=== PATIENT | female | born 1965 | race Caucasian/White ===

== ENCOUNTER 2018-06-15 06:34 | Day surgery (SDC) | payer SELFPAY ==
[2018-06-11 13:43] VITALS: BMI 19.9
[2018-06-15] MEDS ORDERED: HEPARIN NA (PORCINE) 5,000 UNITS/ML 1ML VIAL ONE (07:06)
[2018-06-15] MEDS ORDERED: SCOPOLAMINE HYDROBROMIDE 1 PATCH PATCH.TD72 ONE (07:41)
[2018-06-15] MEDS ORDERED: fentaNYL CITRATE 250 MCG/5 ML VIAL ONE ×2 (07:52→10:31)
[2018-06-15] MEDS ORDERED: PROPOFOL 20 ML ONE ×6 (07:53)
[2018-06-15] MEDS ORDERED: MIDAZOLAM HCL 2 MG/2 ML SINGLE DOSE VIAL ONE (07:53)
[2018-06-15] MEDS ORDERED: ROCURONIUM BROMIDE 50 MG/5 ML VIAL ONE ×2 (07:53→09:43)
[2018-06-15] MEDS ORDERED: SUCCINYLCHOLINE CHLORIDE 200 MG/10 ML VIAL ONE (07:55)
[2018-06-15] MEDS ORDERED: BUPIVACAINE HCL 0.25% 125 MG/50 ML VIAL ONE (07:59)
[2018-06-15] MEDS ORDERED: DESFLURANE GAS 240 ML BOTTLE IH ONE (08:00)
[2018-06-15] MEDS ORDERED: BUPIVACAINE LIPOSOME/PF (EXPAREL) 266 MG/20 ML VIAL ONE (08:13)
[2018-06-15] MEDS ORDERED: BUPIVACAINE HCL/PF 2.5 MG/ML - 30 ML VIAL IJ ONE (08:16)
[2018-06-15] MEDS ORDERED: ePHEDrine SULFATE 50 MG/1 ML AMPULE ONE ×2 (08:49→11:01)
[2018-06-15] MEDS ORDERED: KETOROLAC TROMETHAMINE 30 MG/1 ML VIAL ONE (09:43)
[2018-06-15] MEDS ORDERED: LIDOCAINE HCL 2% JELLY (5 ML/TUBE) ONE (09:43)
[2018-06-15] MEDS ORDERED: DEXAMETHASONE SOD PHOSPHATE 4 MG/1 ML VIAL ONE (09:43)
[2018-06-15] MEDS ORDERED: ceFAZolin SODIUM 1 GM VIAL ONE ×2 (09:43→15:03)
[2018-06-15] MEDS ORDERED: ONDANSETRON 4 MG/2 ML VIAL ONE (09:43)
[2018-06-15] MEDS ORDERED: BUPIVACAINE HCL 0.25% 125 MG/50 ML VIAL NR ONE (11:07)
[2018-06-15] MEDS ORDERED: BUPIVACAINE LIPOSOME/PF (EXPAREL) 266 MG/20 ML VIAL NR ONE (11:07)
[2018-06-15] MEDS ORDERED: BACITRACIN 15 GM TUBE TOPICAL OINTMENT ONE (14:20)
[2018-06-15] MEDS ORDERED: ONDANSETRON 4 MG/2 ML VIAL IVPB PRN (14:49)
--- NOTE | 2018-06-15 14:52 | OP ---
Operative Note - Note: Operative Date: 06/15/18 Pre-Operative Diagnosis: cosmetic Operation: abdominoplasty with bilateral mastopexy Findings: above Post-Operative Diagnosis: Same as Pre-op Surgeon: Juan Jose Jorge Anesthesia: General
[2018-06-15] MEDS ORDERED: LACTATED RINGERS SOLUTION 1,000 ML IV SCH (15:00)
[2018-06-15] MEDS ORDERED: oxyCODONE HCL 5 MG TABLET PO PRN (15:14)
--- NOTE | 2018-06-15 16:09 | OP ---
DATE OF OPERATION: 06/15/2018 TITLE OF PROCEDURE: Abdominoplasty, bilateral mastopexies. ATTENDING SURGEON: Juan Jose Childs M.D. AUTOMATED MANUFACTURING INSTRUCTOR: None ANESTHESIA: General endotracheal anesthesia. DESCRIPTION OF PROCEDURE: The patient is seen in the holding area, awake and alert, aware of all incisions and resulting scars. Risks, benefits, and alternatives as well as limitations were discussed with the patient, and she understands and agrees to proceed. 5000 units of subcutaneous heparin are given preoperatively. DELILAH hose and sequential compression stockings are applied in the holding area. She is brought to the operating room, placed in a supine position. She is positioned awake. Position is carefully checked by surgical and anesthesia teams. A Berkowitz catheter is placed after anesthesia is given, she is prepped and draped in standard surgical fashion. 2 g of Ancef were given. Timeout was called. Patient, procedure, incision site are verified. At this point, incision is made at the inferior portion of the abdominal resection pattern, carried down to the level of the abdominal wall fascia. Dissection is then carried along the abdominal wall fascia to the level of the umbilicus. The umbilicus is circumcised, . The dissection along the abdominal wall continues to the xiphoid process in the midline and costal margins bilaterally. At this point a midline plication is performed with a combination of simple and buried [id number] number 1 Prolene sutures both above and below the umbilicus followed by a running 0 Prolene above and below the umbilicus leaving adequate space for the umbilicus to be translocated. Hemostasis meticulously achieved. The wound was copiously irrigated with normal saline. The patient is brought to the flexed position where the abdominoplasty flap is able to be transposed and excess skin and fat are removed, and the umbilicus is marked, and it is translocated through an inverted Star Trek pattern and is secured with a series of interrupted 4-0 nylon suture with buried deep dermal 3-0 Monocryl suture. Size 10 flat ERI drains were brought out through either side of the incision. The right drain is in the superior portion and the lower portion of the wound. The skin is tailor tacked and attention is then directed towards the bilateral breasts. Nipples were sited at 20 cm bilaterally from the sternal notch. A modified vertical pattern is planned. We were using a superior pedicle. The right breast is addressed first. The superior pedicle is deepithelialized with the exception of the nipple areolar. The nipple areolar had been addressed with a 42-mm cookie cutter. The pedicle is mobilized superiorly. Medial and lateral incisions are made after skin tailor tacking to assess for skin redundancy. These incisions are carried down to the level of the chest wall. The breast tissue is imprecated on itself inferiorly after being slightly undermined inferomedially and inferolaterally to create an appropriate breast mount. With the skin tailor tacked, attention is then directed toward the contralateral side where a mirror image procedure is performed. Patient brought to a seated upright position where excellent symmetry of nipple position, size, shape of the breasts are achieved. The resected skin is sent for pathology. The imbrication of the inferior glandular tissues performed with a series of 2-0 Vicryl suture. The deep dermis is approximated with a series of interrupted buried deep dermal 3-0 Monocryl suture. The nipple areolar is inset with a series interrupted buried deep dermal 4-0 Monocryl suture followed by a running subcuticular 4-0 Monocryl suture. The vertical limbs are closed with a running subcuticular 4-0 Monocryl suture. The abdominoplasty incision is then closed first with a superficial fascial system buried 2-0 Vicryl suture followed by a series of interrupted buried deep dermal 3-0 Monocryl sutures followed by a running mid dermal V-Loc suture, several 5-0 nylon sutures placed in the skin both the breasts and abdomen to assure the closure. The patient is dressed with Steri-Strips both on the abdomen and the breast. Nipples are pink and viable at the end of the procedure. A compressive binder and surgical bra are applied. Umbilicus dressed with bacitracin and Xeroform, 4x4 gauze. Patient is awoken from anesthesia, maintained in a flexed position, transferred to recovery without complications. Berkowitz catheter was removed at the end of the procedure. JUAN JOSE CHILDS M.D. [id number]
[2018-06-15] MEDS: CEFAZOLIN 1 GM/D5W 1 GM/50 ML BAG IVPB SCH ×2 (16:47→20:39)
[2018-06-15] MEDS: ACETAMINOPHEN 325 MG TABLET (FP) PO SCH ×2 (16:49→20:39)
[2018-06-15] MEDS: oxyCODONE HCL 5 MG TABLET PO PRN (19:15)
[2018-06-16] MEDS: oxyCODONE HCL 5 MG TABLET PO PRN ×2 (00:16→07:00)
[2018-06-16] MEDS: CEFAZOLIN 1 GM/D5W 1 GM/50 ML BAG IVPB SCH ×2 (03:20→08:50)
[2018-06-16] MEDS: ACETAMINOPHEN 325 MG TABLET (FP) PO SCH ×2 (03:20→08:51)
[2018-06-16] MEDS: HEPARIN NA (PORCINE) 5,000 UNITS/ML 1ML VIAL SQ SCH ×2 (08:50→11:27)
[2018-06-16 10:01] VITALS: BP 94/51; PULSE 72; TEMP 99
--- NOTE | 2018-06-16 11:21 | PN ---
Progress Note (short form) - Note Progress Note: Healing well, VSS AF All tissues viable, no collections or infections Ambulating, SQ heparin started, SCD's in place Nipples bilaterally sensate and viable OK for discharge with IS, drain care instructions, and follow up in one week
--- NOTE | 2018-06-19 18:17 | PATH ---
Surgical Pathology Report Patient Name: VANDANA FERNANDES Med. Rec. #: [id number] /Age/Gender: 1965 (Age: 52) / F Account: [id number] Location: [facility] MED-SURG Taken: 06/15/2018 Received: 06/15/2018 Reported: 06/19/2018 Physicians: Juan Jose Jorge Specimen(s) Received A: RIGHT BREAST SKIN B: LEFT BREAST SKIN Clinical History Cosmetic Final Diagnosis A. BREAST SKIN, RIGHT, EXCISION: SKIN WITHOUT SIGNIFICANT PATHOLOGIC FINDINGS. B. BREAST SKIN, LEFT, EXCISION: SKIN WITHOUT SIGNIFICANT PATHOLOGIC FINDINGS. BENIGN BREAST PARENCHYMA. Electronically Signed Ning Cantu M.D. Gross Description A. Received in formalin labeled "right breast skin," is a 4.0 x 3.0 cm jimenes, irregular, unoriented portion of skin with underlying soft tissue. No discrete epidermal lesions are identified. A client representative section is submitted in one cassette. B. Received in formalin labeled "left breast skin," is a 5.1 x 5.0 x 0.4 cm aggregate of multiple irregular, unoriented portion of skin and soft tissue. No discrete lesions are identified. Piledriver Carpenter sections are submitted in one cassette. 06/18/201806/18/2018
== END 2018-06-16 12:15 | disposition home or self-care (01) ==
LOC: FASU 06:34 → FASUSAT 06:34 → FM/S 15:36 → FASUSAT 06-16 12:15
PROVIDERS: ATTEND Plastic Surgery
PROC: 0J080ZZ Alteration of Abdomen Subcutaneous Tissue and Fascia, Open Approach (ICD-10-PCS; principal; 2018-06-15 09:14)
PROC: 0H0V0ZZ Alteration of Bilateral Breast, Open Approach (ICD-10-PCS; 2018-06-15 09:14)
DX: Z41.1 Encounter for cosmetic surgery (principal)
CPT/HCPCS: 88305-TC; 94760; J1644

== ENCOUNTER 2022-01-03 10:57 | Day surgery (SDC) | payer OTHER ==
[2021-12-31 15:02] VITALS: BMI 19.5
[2022-01-03] MEDS ORDERED: LIDOCAINE HCL 1%, 10 MG/ML (20ML VIAL) ONE ×2 (13:30→14:26)
[2022-01-03] MEDS ORDERED: EPINEPHrine/PF 1 MG/1 ML (1:1,000) AMPULE ONE ×2 (13:30→14:26)
[2022-01-03] MEDS ORDERED: SCOPOLAMINE HYDROBROMIDE 1 PATCH PATCH.TD72 ONE (13:36)
[2022-01-03] MEDS ORDERED: HALOPERIDOL LACTATE 5 MG/ML ONE (13:36)
[2022-01-03] MEDS ORDERED: ROCURONIUM BROMIDE 50 MG/5 ML SYRINGE ONE (13:44)
[2022-01-03] MEDS ORDERED: PROPOFOL 200 ML ONE (13:45)
[2022-01-03] MEDS ORDERED: MIDAZOLAM HCL 2 MG/2 ML SINGLE DOSE VIAL ONE (13:45)
[2022-01-03] MEDS ORDERED: LIDOCAINE HCL 2% JELLY 10 ML CARTRIDGE ONE (13:47)
[2022-01-03] MEDS ORDERED: OXYMETAZOLINE 0.05% NASAL SOLUTION 15 ML BOTTLE NS ONE ×2 (13:51→14:29)
[2022-01-03] MEDS ORDERED: KETOROLAC TROMETHAMINE 30 MG/1 ML VIAL ONE (14:17)
[2022-01-03] MEDS ORDERED: ceFAZolin SODIUM 1 GM VIAL ONE (14:17)
[2022-01-03] MEDS ORDERED: ONDANSETRON 4 MG/2 ML VIAL ONE (14:17)
[2022-01-03] MEDS ORDERED: DEXAMETHASONE SOD PHOSPHATE 4 MG/1 ML VIAL ONE (14:17)
[2022-01-03] MEDS ORDERED: SEVOFLURANE 250 ML BTL ONE (14:32)
[2022-01-03] MEDS ORDERED: GLYCOPYRROLATE 0.2 MG/1 ML VIAL ONE (14:38)
[2022-01-03] MEDS ORDERED: BACITRACIN 15 GM TUBE TOPICAL OINTMENT ONE (15:51)
[2022-01-03] MEDS ORDERED: PROMETHAZINE HCL 25 MG/1 ML VIAL IVPUSH PRN (17:52)
[2022-01-03] MEDS ORDERED: oxyCODONE HCL 5 MG TABLET PO PRN ×4 (17:52→18:55)
[2022-01-03] MEDS ORDERED: ACETAMINOPHEN 325 MG TABLET (FP) PO PRN (17:52)
[2022-01-03] MEDS ORDERED: ONDANSETRON 4 MG/2 ML VIAL IVPUSH PRN (17:52)
[2022-01-03] MEDS ORDERED: NITROGLYCERIN 2% OINTMENT - 1GM PACKET TD ONE (18:34)
[2022-01-03] MEDS ORDERED: ONDANSETRON 4 MG/2 ML VIAL IVPB PRN (18:55)
[2022-01-03] MEDS ORDERED: LACTATED RINGERS SOLUTION 1,000 ML IV SCH (19:00)
[2022-01-03 20:10] VITALS: TEMP 97.1
[2022-01-03 20:12] VITALS: BP 102/66; PULSE 67; RESP 17
== END 2022-01-03 20:16 | disposition home or self-care (01) ==
LOC: FASUSAT 10:57
PROVIDERS: ATTEND Plastic Surgery
PROC: 09QM0ZZ Repair Nasal Septum, Open Approach (ICD-10-PCS; 2022-01-03)
PROC: 09SL0ZZ Reposition Nasal Turbinate, Open Approach (ICD-10-PCS; 2022-01-03)
PROC: 09SM0ZZ Reposition Nasal Septum, Open Approach (ICD-10-PCS; principal; 2022-01-03 14:45)
DX: J34.89 Other specified disorders of nose and nasal sinuses (principal); J34.2 Deviated nasal septum
CPT/HCPCS: 88304-TC; 94760